=== PATIENT | female | born 1995 | race Asian ===

== ENCOUNTER 2019-08-08 06:59 | Inpatient (IN) | payer OTHER ==
[2019-08-08] VITALS (41 sets, daily range): BP systolic 10–158; BP diastolic 56–90; PULSE 74–104; TEMP 98–98.8
[~2019-08-08] VITALS: Ht 165.1 cm; Wt 80.9 kg
--- NOTE | 2019-08-08 06:50 | NUR ---
0650- Pt arrives on unit via gurney, escorted by EMS, present. Pt speaks only Kyrgyz, business mail entry clerk offered, declines and states he would translate for her. 0700- SVE by this RN, Amniotrace positive, -/-1. Assessment completed, VSS. Pt denies feeling pain, cramping, or contractions.
[2019-08-08] MEDS ORDERED: NATURAL IRON65 MG (07:12)
[2019-08-08] MEDS ORDERED: CONCEPT DHA1 CAP PO (07:12)
[2019-08-08] MEDS ORDERED: ZANTAC 150MG T150 MG PO (07:13)
[2019-08-08] MEDS ORDERED: GOOD SENSE SLEE25 M1 PO (07:13)
[2019-08-08 08:04] LABS: BASO % 0.2 % (0.0-2.0); EOS % 0.3 % (0-4.0); GRAN # 8.2 (1.4-6.5); GRAN % 75.3 % (42.2-75.2); HEMATOCRIT 32.7 % (37.0-47.0); HEMOGLOBIN 10.8 g/dl (12.5-16.0); LYMPH # 2.1 (1.2-3.4); LYMPH % 19.2 % (20.0-51.0); MEAN CELL VOLUME 87 fl (80.0-100.0); MEAN CORPUSCULAR HEMOGLOBIN 29 pg (27.0-31.0); MEAN CORPUSCULAR HGB CONC 33 g/dl (33.0-37.0); MEAN PLATELET VOLUME 11.3 fl (7.4-10.4); MONO # 0.5 (0.1-0.6); MONO % 4.7 % (1.7-9.3); PLATELET COUNT 194 K/mm3 (130-400); RED BLOOD COUNT 3.76 M/mm3 (4.10-5.30); REDCELL DISTRIBUTION WIDTH-CV 13.1 % (11.5-14.5)
--- NOTE | 2019-08-08 09:20 | NUR ---
1131- Dr Philippe at bedside, discussed plan of care, questions answered.
--- NOTE | 2019-08-08 14:00 | NUR ---
1351- Dr Patel at bedside with this RN per Dr Philippe's request. IUPC placed without difficutly, Positive cough response. Pt repositioned to RL.
--- NOTE | 2019-08-08 15:15 | NUR ---
UC couplets noted for 13mins before returning to baseline.
--- NOTE | 2019-08-08 15:30 | NUR ---
1523- Pt complains of "feeling like baby is coming out". SVE finds Pt complete/+2. Pt repositioned to WL. Contractions continue to be coupleting with 2-5 contractions at a time.
--- NOTE | 2019-08-08 16:00 | NUR ---
1544- Fair out without difficulty. 1550- Pt begins pushing with UCs, does well translating instructions. RN remains at bedside.
--- NOTE | 2019-08-08 16:45 | NUR ---
1637- [facility] Nursery RN at bedside. 1640- Dr Philippe at bedside. Pt and room prepped for delivery. Pt continues pushing with [facility]. 164- of viable male infant. Cord clamped and cut. Infant to mother's abd, tended to by Nursery RN. Pitocin off. Cord blood obtained. 164- Spontaneous delivery of placenta, Pitocin on at 333ml/hr. 2nd degree laceration repaired by . Pericare completed, Ice pack to perineum. Pt repositioned to semi-fowlers, [id number] with mom.
--- NOTE | 2019-08-08 20:30 | NUR ---
pt sitting up in bed, with knees bent, looking at her cell phone. Minimal [place], makes eye contact. Denies pain. in NSY with baby for bath. IV to INT, Epidural catheter dc'd.
--- NOTE | 2019-08-08 20:40 | NUR ---
pt stands at bedside, exclaims "she will fall, she is too weak" Pt's knees buckle, eyes close, and is assisted back onto bed. Pericare performed in med, small lochia without clots, fundus firm. Peripads and panties applied. Pivot transferred to wheelchair with staff assist of 2. transferred to room via wheelchair, transfers self to bed without difficulty. Pt and spouse instructed to call for assistance. Instructed pt and spouse that pt "is not to get out of bed without staff assistance" Spouse verbalizes understanding and pt smiles and nods yes.
--- NOTE | 2019-08-08 23:00 | NUR ---
Up to bathroom with slightly unsteady gait, leaks urine on way to bathroom. Voids, pericare performed. Back to bed with steadier gait. hovering and doting, translates
[2019-08-09 07:19] VITALS: BP 105/64; PULSE 88; TEMP 98.2
--- NOTE | 2019-08-09 10:36 | NUR ---
Initial visit; Parents thanked for offering congratulations for the of their daughter. Clinical Laboratory Director thanked family for choosing [facility].
--- NOTE | 2019-08-09 14:34 | NUR ---
lawn service worker arranged for [facility] emergency services to deliver a car seat of on 08/10/19. Worker collaborated with patient's nurse regarding the above information. There are no further concerns about certificate. Patient has a friend that can transport home if needed.
[2019-08-09 16:27] VITALS: BP 96/79; PULSE 97; TEMP 97.3
[2019-08-09 20:00] VITALS: BP 100/70; PULSE 75; TEMP 98.8
--- NOTE | 2019-08-09 20:30 | NUR ---
Pt and spouse with questions about care. Informed that education packet has information about care and infant care. Pt inquired about abd binder, has one, assisted with application and adjustment. Wears while we discussed use. Then takes it back off, and puts it back in package.
[2019-08-10] MEDS ORDERED: MOTRIN 800800 MG/TAB PO (06:52)
[2019-08-10 07:30] VITALS: BP 106/65; PULSE 87; TEMP 98.2
== END 2019-08-10 12:00 | disposition home or self-care (01) | DRG 807 ==
LOC: LDRO 06:59 → LDR 07:07 → OB 07:07
PROVIDERS: ADMIT Obstetrics & Gynecology
PROC: 10E0XZZ Delivery of Products of Conception, External Approach (ICD-10-PCS; principal; 2019-08-08)
PROC: 0KQM0ZZ Repair Perineum Muscle, Open Approach (ICD-10-PCS; 2019-08-08)
DX: O42.92 Full-term premature rupture of membranes, unspecified as to length of time between rupture and onset of labor (principal); Z37.0 Single live birth; O70.1 Second degree perineal laceration during delivery; O99.02 Anemia complicating childbirth; D64.9 Anemia, unspecified; O99.62 Diseases of the digestive system complicating childbirth; K21.9 Gastro-esophageal reflux disease without esophagitis; O69.1XX0 Labor and delivery complicated by cord around neck, with compression, not applicable or unspecified; Z3A.38 38 weeks gestation of pregnancy
CPT/HCPCS: J2590; J7120